=== PATIENT | male | born 1935 | race Asian ===

== ENCOUNTER → 2016-03-26 | Outpatient (CLI) | payer MEDICARE, MEDICAID ==
[~2016-03-26] MED LIST: ASPI81TA2 PO; CARV3 PO; FOLI1TAB85 PO; ROSU10 PO; TICA90TA PO
== END | disposition home or self-care (01) ==
LOC: RADPV 07:57
PROVIDERS: ATTEND Internal Medicine Cardiovascular Disease
DX: R06.00 Dyspnea, unspecified (principal)
CPT/HCPCS: 93306

== ENCOUNTER → 2016-09-08 | Outpatient (CLI) | payer MEDICARE, MEDICAID | END | disposition home or self-care (01) | LOC: RADPV 12:13 | PROVIDERS: ATTEND Internal Medicine | DX: R91.1 Solitary pulmonary nodule (principal); J98.11 Atelectasis; R91.8 Other nonspecific abnormal finding of lung field; J90 Pleural effusion, not elsewhere classified; I51.7 Cardiomegaly; I70.0 Atherosclerosis of aorta; J92.9 Pleural plaque without asbestos | CPT/HCPCS: 71020; 71100 ==